=== PATIENT | male | born 1945 | race African-American/Black ===

== ENCOUNTER 2019-06-28 00:15 | Emergency (ER) | payer MEDICARE, OTHER ==
[2019-06-28 01:20] LABS: Basophils # (auto) 0 uL; Basophils % (auto) 0.4 % (0.0-2.0); Eosinophils # (auto) 0.2 uL; Hematocrit 39.3 % (41.0-53.0); Hemoglobin 13.2 g/dL (13.5-17.5); Lymphocytes # (auto) 0.7 uL; Lymphocytes % (auto) 14.5 % (10.0-50.0); Mean Corpuscular Hemoglobin 29.2 pg (28.0-32.0); Mean Corpuscular Hgb Conc. 33.6 g/dL (32.0-36.0); Mean Corpuscular Volume 86.9 fL (80.0-100.0); Monocytes # (auto) 0.4 uL; Neutrophils # (auto) 3.4 uL; Neutrophils % (auto) 72.1 % (37.0-80.0); Nucleated Red Blood Cells % 0.1 %; Platelet Count (auto) 276 10^3/uL (140-450); Red Blood Cells 4.52 10^6/uL (4.5-5.90); Red Cell Distribution Width 14.8 % (11.8-14.3); White Blood Cell 4.7 10^3/uL (4.4-10.8)
[2019-06-28 01:39] LABS: Albumin 3.1 g/dL (3.4-5.0); BUN/Creatinine Ratio 17.6; Calcium 9.9 mg/dL (8.5-10.1); Potassium 3.1 mmol/L (3.5-5.1)
[2019-06-28 01:40] LABS: Bilirubin, Total 0.5 mg/dL (0.2-1.0); Total Protein 7.1 g/dL (6.4-8.2)
[2019-06-28 07:07] LABS: Urine Bacteria MOD /hpf (None Seen); Urine Blood 1+ /uL (Negative); Urine Specific Gravity 1.011 (1.001-1.035); Urine WBC 179 /hpf (0 - 3); Urine WBC Clumps PRESENT /hpf (None Seen)
[2019-06-28 09:00] VITALS: BP 103/75
== END 2019-06-28 10:21 | disposition home or self-care (01) ==
LOC: ER 00:18
DX: N39.0 Urinary tract infection, site not specified (principal); R33.9 Retention of urine, unspecified
CPT/HCPCS: 36415; 51702; 80053; 81001; 85025; 87086; 87088; 87186

== ENCOUNTER 2021-02-24 21:18 | Inpatient (IN) | payer OTHER ==
[~2021-02-24] VITALS: Ht 124.5 cm; Wt 75.8 kg
[2021-02-25 01:44] LABS: Hematocrit 40.3 % (41.0-53.0); Hemoglobin 13.2 g/dL (13.5-17.5); Mean Corpuscular Hemoglobin 28.9 pg (28.0-32.0); Mean Corpuscular Hgb Conc. 32.7 g/dL (32.0-36.0); Mean Corpuscular Volume 88.3 fL (80.0-100.0); Red Blood Cells 4.56 10^6/uL (4.5-5.90); Red Cell Distribution Width 15.3 % (11.8-14.3); White Blood Cell 5.1 10^3/uL (4.4-10.8)
[2021-02-25 01:49] LABS: Basophils % (manual) 0 (0.0-2.0); Blast Cells 0; Eosinophils % (manual) 0 (0-7); Lactic Acid w/Reflex 7.1 mmol/L (0.4-2.0); Metamyelocytes % 0; Monocytes % (manual) 0 (0-12); Promyelocytes % 0; Reactive Lymphocytes 0
[2021-02-25 02:17] LABS: Band Neutrophils % (manual) 40; Lymphocytes % (manual) 4 (10.0-50.0); Myelocytes % 2
[2021-02-25] MEDS ORDERED: SODIUM CHLORIDE 0.9% 1,000 ML IV ONE (03:00)
[2021-02-25] MEDS: cefTRIAXone 1GM/50ML D5W 50 ML IV SCH ×2 (03:30→08:36)
[2021-02-25] MEDS ORDERED: SODIUM CHLORIDE 0.9% 1,000 ML IV SCH (03:30)
[2021-02-25] MEDS ORDERED: ONDANSETRON HCL 4 MG/2 ML VIAL IV PRN (03:30)
[2021-02-25] MEDS ORDERED: ALBUMIN 5% 250 ML IV ONE (03:30)
[2021-02-25 03:34] LABS: Urine Amorphous Crystal FEW /hpf (None Seen); Urine Bacteria FEW /hpf (None Seen); Urine Blood TRACE /uL (Negative); Urine Mucus FEW (None Seen); Urine Specific Gravity 1.013 (1.001-1.035); Urine WBC 2 /hpf (0 - 3)
[2021-02-25 03:55] LABS: Potassium 4.6 mmol/L (3.5-5.1)
[2021-02-25 03:58] LABS: BUN/Creatinine Ratio 15.7; Bilirubin, Total 0.9 mg/dL (0.2-1.0); Total Protein 7.6 g/dL (6.4-8.2)
[2021-02-25] MEDS ORDERED: NOREPINEPHRINE 8 MG/250ML KIT 250 ML IV ONE (07:14)
[2021-02-25] MEDS: NOREPINEPHRINE 8 MG/250ML KIT 250 ML IV SCH ×2 (07:15→21:03)
[2021-02-25] MEDS ORDERED: ENOXAPARIN SOD 30 MG/0.3 ML SYRINGE SC SCH (10:00)
[2021-02-25] MEDS ORDERED: PANTOPRAZOLE 40 MG TAB PO SCH (10:00)
[2021-02-25] MEDS: ACETAMINOPHEN 325 MG TAB PO PRN (10:13)
[2021-02-25] MEDS ORDERED: VANCOMYCIN PER PHARMACY 0 MG IV SCH (10:30)
[2021-02-25] MEDS ORDERED: SODIUM CHLORIDE 0.9% 500 ML IV ONE (10:30)
[2021-02-25] MEDS: SODIUM CHLORIDE 0.9% 1,000 ML IV SCH ×2 (10:30→11:31)
[2021-02-25] MEDS ORDERED: VANCOMYCIN 1GM/250ML 250 ML IV ONE (11:00)
[2021-02-25] MEDS ORDERED: LORazepam 2MG/ML-1ML VIAL IV ONE (11:30)
[2021-02-25] MEDS ORDERED: HALOPERIDOL LACTATE 5 MG/ML INJ VIAL IM PRN (11:45)
[2021-02-25] MEDS ORDERED: ACYCLOVIR 10MG/KG Q8HR PER RX 0 ML IV SCH (13:15)
[2021-02-25] MEDS ORDERED: LORazepam 2MG/ML-1ML VIAL IM ONE (15:00)
[2021-02-25] MEDS ORDERED: diphenhdrAMINE HCL 50 MG/1 ML VL IM ONE (15:00)
[2021-02-25] MEDS ORDERED: ACYCLOVIR SOD 50MG/ML 500 MG in D5W 5% 100 ML IV SCH (16:00)
[2021-02-25] MEDS ORDERED: ETOMIDATE (2MG/ML) 20ML VIAL IV ONE ×2 (16:41→17:15)
[2021-02-25] MEDS ORDERED: SUCCINYLCHOLINE CHLORIDE 20 MG/ML 10ML VIAL IV ONE ×2 (16:42→17:15)
[2021-02-25] MEDS ORDERED: MIDAZOLAM DRIP 50 mg/50mL 50 ML IV ONE (16:45)
[2021-02-25 16:58] VITALS: BP 68/37
[2021-02-25] MEDS ORDERED: fentaNYL Drip 2500mCg/250mlNS 250 ML IV ONE (17:02)
[2021-02-25] MEDS: MIDAZOLAM DRIP 50 mg/50mL 50 ML IV SCH ×3 (17:23→19:58)
[2021-02-25] MEDS: fentaNYL Drip 2500mCg/250mlNS 250 ML IV SCH ×2 (17:25→18:52)
[2021-02-25 18:30] VITALS: BP 75/46
[2021-02-25] MEDS ORDERED: SODIUM CHLORIDE 0.9% 2,000 ML IV ONE (19:15)
[2021-02-25] MEDS ORDERED: DEXTROSE (50%) 50ML SYRG IV PRN (19:15)
[2021-02-25 20:28] LABS: Protein, CSF 48.5 mg/dL (15-45)
[2021-02-25 20:42] LABS: CSF White Blood Cells 1 CUMM (0-5)
[2021-02-25] MEDS: DOPamine 1600MCG/ML D5W 250 ML IV SCH (21:12)
[2021-02-25] MEDS: D5W/SOD CHLO 0.9% 1,000 ML IV SCH (21:19)
[2021-02-25] MEDS: PHENYLEPHRINE IV 250 ML IV SCH (21:47)
[2021-02-25 22:23] VITALS: BP 95/49
[2021-02-25] MEDS: DexAMETHasone INJECTION 10 MG in D5W 5% 50 ML IV SCH (22:25)
[2021-02-25] MEDS: AMPICILLIN SOD 2GM INJ 2 GM in SODIUM CHL 0.9% 100 ML IV SCH (22:27)
[2021-02-25] MEDS: CEFTRIAXONE SODIUM 2 GM in D5W 5% 50 ML IV SCH (22:37)
[2021-02-26] VITALS (8 sets, daily range): BP systolic 101–123; BP diastolic 60–70
[2021-02-26] MEDS: AMPICILLIN SOD 2GM INJ 2 GM in SODIUM CHL 0.9% 100 ML IV SCH ×3 (00:26→12:49)
[2021-02-26] MEDS: DexAMETHasone INJECTION 10 MG in D5W 5% 50 ML IV SCH ×3 (00:26→12:42)
[2021-02-26] MEDS: MIDAZOLAM DRIP 50 mg/50mL 50 ML IV SCH ×2 (00:34→04:19)
[2021-02-26] MEDS: PHENYLEPHRINE IV 250 ML IV SCH ×6 (01:05→21:46)
[2021-02-26] MEDS: NOREPINEPHRINE 8 MG/250ML KIT 250 ML IV SCH ×3 (01:51→20:36)
[2021-02-26] MEDS: D5W/SOD CHLO 0.9% 1,000 ML IV SCH ×3 (04:15→20:02)
[2021-02-26 05:51] LABS: Hematocrit 33.2 % (41.0-53.0); Hemoglobin 10.5 g/dL (13.5-17.5); Mean Corpuscular Hemoglobin 28.2 pg (28.0-32.0); Mean Corpuscular Hgb Conc. 31.6 g/dL (32.0-36.0); Mean Corpuscular Volume 89.5 fL (80.0-100.0); Red Blood Cells 3.71 10^6/uL (4.5-5.90); White Blood Cell 19.2 10^3/uL (4.4-10.8)
[2021-02-26] MEDS: InsuLIN REG 1unit/0.01ml Soln (100units/ml) SC SCH ×4 (05:53→18:24)
[2021-02-26] MEDS: ACCU-CHEK COMFORT CURVE STRIP VI SCH ×4 (05:53→18:24)
[2021-02-26 06:23] LABS: Basophils % (manual) 0 (0.0-2.0); Blast Cells 0; Eosinophils % (manual) 0 (0-7); Promyelocytes % 0; Reactive Lymphocytes 0
[2021-02-26 06:30] LABS: Calcium 7.7 mg/dL (8.5-10.1); Potassium 4.6 mmol/L (3.5-5.1)
[2021-02-26 08:28] LABS: Band Neutrophils % (manual) 27; Lymphocytes % (manual) 3 (10.0-50.0); Metamyelocytes % 8; Monocytes % (manual) 6 (0-12); Myelocytes % 3
[2021-02-26] MEDS: CEFTRIAXONE SODIUM 2 GM in D5W 5% 50 ML IV SCH (10:23)
[2021-02-26] MEDS: PANTOPRAZOLE 40 MG/10 ML VIAL INJ IV SCH (11:31)
[2021-02-26] MEDS: VASOPRESSIN 50 UNITS in D5W 5% 247.5 ML IV SCH (13:30)
[2021-02-26] MEDS ORDERED: MEROPENEM 1GM IVPB 100 ML IV ONE ×2 (14:00)
[2021-02-26] MEDS ORDERED: HYDROCORTISONE SOD SUCC 100 MG/2ML INJ VIAL IV SCH (14:00)
[2021-02-26] MEDS ORDERED: MEROPENEM 1GM IVPB 100 ML IV SCH (14:00)
[2021-02-26] MEDS: ACETAMINOPHEN 325 MG TAB PO PRN (15:05)
[2021-02-26] MEDS ORDERED: VANCOMYCIN PER PHARMACY 0 MG IV SCH (15:30)
[2021-02-26] MEDS: DOPamine 1600MCG/ML D5W 250 ML IV SCH (16:20)
[2021-02-26] MEDS ORDERED: VANCOMYCIN 1GM/250ML 250 ML IV ONE (18:00)
[2021-02-26 19:21] LABS: INR 1.57 (0.9-1.15)
[2021-02-26] MEDS: HYDROCORTISONE SOD SUCC 100 MG/2ML INJ VIAL IV SCH (20:02)
[2021-02-26] MEDS: fentaNYL Drip 2500mCg/250mlNS 250 ML IV SCH (21:46)
[2021-02-26] MEDS: MEROPENEM 500MG IVPB 50 ML IV SCH (22:00)
[2021-02-27] VITALS (9 sets, daily range): BP systolic 124–147; BP diastolic 36–78
[2021-02-27] MEDS: InsuLIN REG 1unit/0.01ml Soln (100units/ml) SC SCH ×3 (00:07→12:00)
[2021-02-27] MEDS: ACCU-CHEK COMFORT CURVE STRIP VI SCH ×3 (00:07→12:00)
[2021-02-27] MEDS: HYDROCORTISONE SOD SUCC 100 MG/2ML INJ VIAL IV SCH ×3 (03:55→20:39)
[2021-02-27] MEDS: D5W/SOD CHLO 0.9% 1,000 ML IV SCH ×2 (03:55→08:53)
[2021-02-27 04:56] LABS: Hematocrit 31.1 % (41.0-53.0); Hemoglobin 10.1 g/dL (13.5-17.5); Mean Corpuscular Hemoglobin 28.9 pg (28.0-32.0); Mean Corpuscular Hgb Conc. 32.5 g/dL (32.0-36.0); Mean Corpuscular Volume 88.8 fL (80.0-100.0); Red Blood Cells 3.51 10^6/uL (4.5-5.90); Red Cell Distribution Width 16.4 % (11.8-14.3); White Blood Cell 25.7 10^3/uL (4.4-10.8)
[2021-02-27 05:14] LABS: BUN/Creatinine Ratio 12.3; Potassium 3.5 mmol/L (3.5-5.1)
[2021-02-27 05:49] LABS: Basophils % (manual) 0 (0.0-2.0); Blast Cells 0; Eosinophils % (manual) 0 (0-7); Promyelocytes % 0; Reactive Lymphocytes 0
[2021-02-27 08:29] LABS: Band Neutrophils % (manual) 18; Lymphocytes % (manual) 2 (10.0-50.0); Metamyelocytes % 2; Monocytes % (manual) 8 (0-12); Myelocytes % 1
[2021-02-27] MEDS: NOREPINEPHRINE 8 MG/250ML KIT 250 ML IV SCH ×3 (09:00→23:30)
[2021-02-27] MEDS: MEROPENEM 500MG IVPB 50 ML IV SCH ×2 (10:00→21:37)
[2021-02-27] MEDS: PANTOPRAZOLE 40 MG/10 ML VIAL INJ IV SCH (10:00)
[2021-02-27] MEDS: fentaNYL Drip 2500mCg/250mlNS 250 ML IV SCH ×2 (11:32→23:30)
[2021-02-27] MEDS: DOPamine 1600MCG/ML D5W 250 ML IV SCH (13:25)
[2021-02-27] MEDS: VASOPRESSIN 50 UNITS in D5W 5% 247.5 ML IV SCH (13:30)
[2021-02-27] MEDS: SODIUM BICARBONATE 50ML VIAL 75 ML in SOD CHL 0.45% 1,000 ML IV SCH (17:00)
[2021-02-27] MEDS: MIDAZOLAM DRIP 50 mg/50mL 50 ML IV SCH ×2 (17:15→20:45)
[2021-02-27] MEDS: PHENYLEPHRINE IV 250 ML IV SCH (18:00)
[2021-02-28] VITALS (77 sets, daily range): BP systolic 89–138; BP diastolic 46–96
[2021-02-28 00:06] LABS: Protein, Urine 21.4 mg/dL (0.0-11.9)
[2021-02-28] MEDS: SODIUM BICARBONATE 50ML VIAL 75 ML in SOD CHL 0.45% 1,000 ML IV SCH ×2 (00:13→06:42)
[2021-02-28] MEDS: ACCU-CHEK COMFORT CURVE STRIP VI SCH ×4 (00:14→18:19)
[2021-02-28] MEDS: InsuLIN REG 1unit/0.01ml Soln (100units/ml) SC SCH ×4 (00:29→18:00)
[2021-02-28] MEDS: MIDAZOLAM DRIP 50 mg/50mL 50 ML IV SCH ×3 (01:21→23:40)
[2021-02-28] MEDS: HYDROCORTISONE SOD SUCC 100 MG/2ML INJ VIAL IV SCH ×3 (03:56→20:00)
[2021-02-28 04:44] LABS: Hematocrit 33.6 % (41.0-53.0)
[2021-02-28 04:48] LABS: Hemoglobin 11.2 g/dL (13.5-17.5); Mean Corpuscular Hemoglobin 28.6 pg (28.0-32.0); Mean Corpuscular Hgb Conc. 33.5 g/dL (32.0-36.0); Mean Corpuscular Volume 85.5 fL (80.0-100.0); Red Blood Cells 3.93 10^6/uL (4.5-5.90); Red Cell Distribution Width 15.8 % (11.8-14.3)
[2021-02-28 05:06] LABS: Albumin 1.6 g/dL (3.4-5.0); Calcium 8.8 mg/dL (8.5-10.1)
[2021-02-28 05:08] LABS: BUN/Creatinine Ratio 17.4
[2021-02-28 05:11] LABS: Bilirubin, Total 1.9 mg/dL (0.2-1.0); Total Protein 5.5 g/dL (6.4-8.2)
[2021-02-28 05:12] LABS: Potassium 2.8 mmol/L (3.5-5.1); White Blood Cell 31.1 10^3/uL (4.4-10.8)
[2021-02-28 05:13] LABS: Basophils % (manual) 0 (0.0-2.0); Blast Cells 0; Eosinophils % (manual) 0 (0-7); Metamyelocytes % 0; Myelocytes % 0; Promyelocytes % 0; Reactive Lymphocytes 0
[2021-02-28] MEDS: NOREPINEPHRINE 8 MG/250ML KIT 250 ML IV SCH (05:37)
[2021-02-28] MEDS ORDERED: SODIUM BICARBONATE 8.4 % INJ 50ML VIAL IV ONE (06:19)
[2021-02-28] MEDS: PHENYLEPHRINE IV 250 ML IV SCH ×2 (08:05→16:25)
[2021-02-28] MEDS: PANTOPRAZOLE 40 MG/10 ML VIAL INJ IV SCH (10:27)
[2021-02-28] MEDS: DOPamine 1600MCG/ML D5W 250 ML IV SCH (10:27)
[2021-02-28] MEDS: MEROPENEM 500MG IVPB 50 ML IV SCH ×2 (10:28→21:58)
[2021-02-28] MEDS: POTASSIUM CHL 20MEQ/100ML 100 ML IV SCH ×3 (10:28→14:30)
[2021-02-28 11:06] LABS: Cryptococcus Antigen CSF Negative (Negative)
[2021-02-28] MEDS: SOD CHL 0.45% WITH 20MEQ KCL 1,000 ML IV SCH ×2 (12:25→17:20)
[2021-02-28 12:49] LABS: Band Neutrophils % (manual) 5; Lymphocytes % (manual) 2 (10.0-50.0); Monocytes % (manual) 2 (0-12)
[2021-02-28] MEDS ORDERED: AMLO-489 PO (12:53)
[2021-02-28] MEDS ORDERED: PRAV20TA3 PO (12:53)
[2021-02-28] MEDS ORDERED: BACL10TA PO (12:53)
[2021-02-28] MEDS ORDERED: POTA10TA51 PO (12:53)
[2021-02-28] MEDS ORDERED: INDA1.252 PO (12:53)
[2021-02-28] MEDS: VASOPRESSIN 50 UNITS in D5W 5% 247.5 ML IV SCH (13:30)
[2021-02-28] MEDS ORDERED: CLINDAMYCIN 600MG IV 50 ML IV SCH (14:00)
[2021-02-28 15:48] LABS: Urine Bacteria FEW /hpf (None Seen); Urine Blood 3+ /uL (Negative); Urine Specific Gravity 1.009 (1.001-1.035); Urine WBC 25 /hpf (0 - 3)
[2021-02-28] MEDS ORDERED: VANCOMYCIN 500 MG in D5W 5% 100 ML IV ONE (18:00)
[2021-02-28] MEDS: FREE WATER GT SCH (18:30)
[2021-02-28] MEDS ORDERED: HEPARIN SODIUM (PORCINE) 5000 UNITS/ML 1ML VIAL SC SCH (22:00)
[2021-03-01] VITALS (100 sets, daily range): BP systolic 65–169; BP diastolic 41–131
[2021-03-01] MEDS: ACCU-CHEK COMFORT CURVE STRIP VI SCH ×5 (00:20→17:51)
[2021-03-01] MEDS: PHENYLEPHRINE IV 250 ML IV SCH ×3 (00:45→17:25)
[2021-03-01] MEDS: MIDAZOLAM DRIP 50 mg/50mL 50 ML IV SCH ×3 (00:54→12:19)
[2021-03-01] MEDS: SOD CHL 0.45% WITH 20MEQ KCL 1,000 ML IV SCH ×3 (01:40→23:19)
[2021-03-01] MEDS: fentaNYL Drip 2500mCg/250mlNS 250 ML IV SCH (03:01)
[2021-03-01 05:13] LABS: Eosinophils # (auto) 0 10 ^3/uL (0-0.8); Hemoglobin 11.2 g/dL (13.5-17.5); Lymphocytes # (auto) 0.4 10 ^3/uL (0.4-5.4); Lymphocytes % (auto) 1.7 % (10.0-50.0); Mean Corpuscular Volume 84.4 fL (80.0-100.0); Neutrophils % (auto) 94.5 % (37.0-80.0)
[2021-03-01 05:21] LABS: Basophils # (auto) 0 10 ^3/uL (0-0.2); Basophils % (auto) 0.2 % (0.0-2.0); Hematocrit 33.4 % (41.0-53.0); Mean Corpuscular Hemoglobin 28.3 pg (28.0-32.0); Mean Corpuscular Hgb Conc. 33.5 g/dL (32.0-36.0); Monocytes # (auto) 0.8 10 ^3/uL (0-1.3); Monocytes % (auto) 3.6 % (0.0-12.0); Neutrophils # (auto) 20.4 10 ^3/uL (1.6-8.6); Nucleated Red Blood Cells % 0.2 %; Red Blood Cells 3.96 10^6/uL (4.5-5.90); Red Cell Distribution Width 15.7 % (11.8-14.3); White Blood Cell 21.6 10^3/uL (4.4-10.8)
[2021-03-01 05:22] LABS: Albumin 1.4 g/dL (3.4-5.0); BUN/Creatinine Ratio 28.8; Calcium 8.5 mg/dL (8.5-10.1)
[2021-03-01 05:25] LABS: Total Protein 5.2 g/dL (6.4-8.2)
[2021-03-01 05:39] LABS: Potassium 2.9 mmol/L (3.5-5.1)
[2021-03-01] MEDS: InsuLIN REG 1unit/0.01ml Soln (100units/ml) SC SCH ×4 (06:00→17:51)
[2021-03-01] MEDS: FREE WATER GT SCH ×5 (06:42→23:17)
[2021-03-01] MEDS: HYDROCORTISONE SOD SUCC 100 MG/2ML INJ VIAL IV SCH ×3 (06:42→20:51)
[2021-03-01] MEDS: DOPamine 1600MCG/ML D5W 250 ML IV SCH (07:35)
[2021-03-01] MEDS ORDERED: POTASSIUM EFFERVESENT TAB 25 MEQ GT ONE (09:15)
[2021-03-01] MEDS: PANTOPRAZOLE 40 MG/10 ML VIAL INJ IV SCH (10:05)
[2021-03-01] MEDS: MEROPENEM 500MG IVPB 50 ML IV SCH ×2 (10:05→23:17)
[2021-03-01] MEDS: POTASSIUM CHL 20MEQ/100ML 100 ML IV SCH ×2 (10:20→12:17)
[2021-03-01] MEDS: MAGNESIUM SULFATE 1GM/100ML 100 ML IV SCH ×2 (10:21→11:31)
[2021-03-01] MEDS: NOREPINEPHRINE 8 MG/250ML KIT 250 ML IV SCH (11:31)
[2021-03-01] MEDS: VANCOMYCIN 1GM/250ML 250 ML IV SCH (12:16)
[2021-03-01] MEDS: VASOPRESSIN 50 UNITS in D5W 5% 247.5 ML IV SCH (13:30)
[2021-03-01 15:47] LABS: BUN/Creatinine Ratio 29.2; Calcium 8.5 mg/dL (8.5-10.1); Potassium 4.4 mmol/L (3.5-5.1)
[2021-03-02] VITALS (92 sets, daily range): BP systolic 97–175; BP diastolic 58–101
[2021-03-02] MEDS: HYDROCORTISONE SOD SUCC 100 MG/2ML INJ VIAL IV SCH ×3 (04:00→19:29)
[2021-03-02] MEDS: InsuLIN REG 1unit/0.01ml Soln (100units/ml) SC SCH ×4 (05:57→18:00)
[2021-03-02] MEDS: ACCU-CHEK COMFORT CURVE STRIP VI SCH ×4 (05:57→18:11)
[2021-03-02] MEDS: FREE WATER GT SCH ×2 (05:58→12:37)
[2021-03-02 06:17] LABS: Hematocrit 30.9 % (41.0-53.0)
[2021-03-02 06:22] LABS: Hemoglobin 10.4 g/dL (13.5-17.5); Mean Corpuscular Hemoglobin 28.9 pg (28.0-32.0); Mean Corpuscular Hgb Conc. 33.5 g/dL (32.0-36.0); Mean Corpuscular Volume 86.2 fL (80.0-100.0); Red Blood Cells 3.58 10^6/uL (4.5-5.90); Red Cell Distribution Width 15.7 % (11.8-14.3); White Blood Cell 17.3 10^3/uL (4.4-10.8)
[2021-03-02 06:37] LABS: Basophils % (manual) 0 (0.0-2.0); Blast Cells 0; Eosinophils % (manual) 0 (0-7); Metamyelocytes % 0; Monocytes % (manual) 0 (0-12); Myelocytes % 0; Promyelocytes % 0; Reactive Lymphocytes 0
[2021-03-02 06:47] LABS: Potassium 3.4 mmol/L (3.5-5.1)
[2021-03-02 06:57] LABS: Albumin 1.5 g/dL (3.4-5.0); Bilirubin, Total 1.3 mg/dL (0.2-1.0); Calcium 8.4 mg/dL (8.5-10.1); Total Protein 4.9 g/dL (6.4-8.2)
[2021-03-02] MEDS: PHENYLEPHRINE IV 250 ML IV SCH ×2 (08:18→11:27)
[2021-03-02] MEDS: DOPamine 1600MCG/ML D5W 250 ML IV SCH (08:18)
[2021-03-02] MEDS: NOREPINEPHRINE 8 MG/250ML KIT 250 ML IV SCH (08:22)
[2021-03-02] MEDS: SOD CHL 0.45% WITH 20MEQ KCL 1,000 ML IV SCH ×3 (08:22→20:00)
[2021-03-02 08:41] LABS: Band Neutrophils % (manual) 2; Lymphocytes % (manual) 18 (10.0-50.0)
[2021-03-02] MEDS: VANCOMYCIN 1GM/250ML 250 ML IV SCH (09:36)
[2021-03-02] MEDS: PANTOPRAZOLE 40 MG/10 ML VIAL INJ IV SCH (11:34)
[2021-03-02] MEDS ORDERED: MEROPENEM 500MG IVPB 50 ML IV ONE (12:00)
[2021-03-02] MEDS: VASOPRESSIN 50 UNITS in D5W 5% 247.5 ML IV SCH (12:57)
[2021-03-02] MEDS ORDERED: POTASSIUM CHL 20MEQ/100ML 100 ML IV ONE (14:45)
[2021-03-02] MEDS: MORPHINE SULFATE INJECTION 2 MG/ML SYRG IV PRN (20:37)
[2021-03-02] MEDS: MEROPENEM 1GM IVPB 100 ML IV SCH (21:48)
[2021-03-02] MEDS: HEPARIN SODIUM (PORCINE) 5000 UNITS/ML 1ML VIAL SC SCH (21:48)
[2021-03-03] VITALS (91 sets, daily range): BP systolic 71–205; BP diastolic 33–110
[2021-03-03] MEDS: ACCU-CHEK COMFORT CURVE STRIP VI SCH ×5 (00:14→23:21)
[2021-03-03] MEDS: HYDROCORTISONE SOD SUCC 100 MG/2ML INJ VIAL IV SCH ×2 (04:00→16:30)
[2021-03-03 06:30] LABS: Hematocrit 28.8 % (41.0-53.0); Hemoglobin 9.7 g/dL (13.5-17.5); Mean Corpuscular Hemoglobin 28.9 pg (28.0-32.0); Mean Corpuscular Hgb Conc. 33.6 g/dL (32.0-36.0); Red Blood Cells 3.35 10^6/uL (4.5-5.90); Red Cell Distribution Width 15.2 % (11.8-14.3); White Blood Cell 14.3 10^3/uL (4.4-10.8)
[2021-03-03] MEDS: InsuLIN REG 1unit/0.01ml Soln (100units/ml) SC SCH ×5 (06:30→23:40)
[2021-03-03 06:36] LABS: Albumin 1.4 g/dL (3.4-5.0); BUN/Creatinine Ratio 44.6; Calcium 8.3 mg/dL (8.5-10.1); Potassium 3.1 mmol/L (3.5-5.1)
[2021-03-03 06:39] LABS: Total Protein 4.6 g/dL (6.4-8.2)
[2021-03-03 06:44] LABS: Basophils % (manual) 0 (0.0-2.0); Blast Cells 0; Eosinophils % (manual) 0 (0-7); Promyelocytes % 0; Reactive Lymphocytes 0
[2021-03-03] MEDS: NOREPINEPHRINE 8 MG/250ML KIT 250 ML IV SCH ×2 (07:15→16:45)
[2021-03-03] MEDS: DOPamine 1600MCG/ML D5W 250 ML IV SCH (07:38)
[2021-03-03] MEDS: SOD CHL 0.45% WITH 20MEQ KCL 1,000 ML IV SCH ×2 (08:00→13:08)
[2021-03-03 08:30] LABS: Band Neutrophils % (manual) 8; Lymphocytes % (manual) 11 (10.0-50.0); Metamyelocytes % 2; Monocytes % (manual) 2 (0-12); Myelocytes % 1
[2021-03-03] MEDS: HEPARIN SODIUM (PORCINE) 5000 UNITS/ML 1ML VIAL SC SCH ×2 (11:07→22:00)
[2021-03-03] MEDS: MEROPENEM 1GM IVPB 100 ML IV SCH ×2 (11:30→21:38)
[2021-03-03] MEDS: POTASSIUM CHL 20MEQ/100ML 100 ML IV SCH ×2 (11:30→13:08)
[2021-03-03] MEDS: MAGNESIUM SULFATE 1GM/100ML 100 ML IV SCH ×2 (11:30→13:17)
[2021-03-03] MEDS: PANTOPRAZOLE 40 MG/10 ML VIAL INJ IV SCH (11:31)
[2021-03-04] VITALS (45 sets, daily range): BP systolic 90–216; BP diastolic 37–107
[2021-03-04] MEDS: HYDROCORTISONE SOD SUCC 100 MG/2ML INJ VIAL IV SCH ×2 (04:00→16:00)
[2021-03-04 05:21] LABS: Hematocrit 32.6 % (41.0-53.0); Hemoglobin 10.8 g/dL (13.5-17.5); Mean Corpuscular Hemoglobin 28.5 pg (28.0-32.0); Mean Corpuscular Hgb Conc. 33.1 g/dL (32.0-36.0); Red Blood Cells 3.79 10^6/uL (4.5-5.90); Red Cell Distribution Width 15.5 % (11.8-14.3); White Blood Cell 18.1 10^3/uL (4.4-10.8)
[2021-03-04 05:36] LABS: Basophils % (manual) 0 (0.0-2.0); Blast Cells 0; Eosinophils % (manual) 0 (0-7); Promyelocytes % 0; Reactive Lymphocytes 0
[2021-03-04 05:40] LABS: Calcium 8.9 mg/dL (8.5-10.1); Potassium 3.7 mmol/L (3.5-5.1)
[2021-03-04 05:46] LABS: BUN/Creatinine Ratio 40.5
[2021-03-04] MEDS: InsuLIN REG 1unit/0.01ml Soln (100units/ml) SC SCH ×4 (06:00→23:49)
[2021-03-04] MEDS: ACCU-CHEK COMFORT CURVE STRIP VI SCH ×4 (06:00→23:49)
[2021-03-04] MEDS: NOREPINEPHRINE 8 MG/250ML KIT 250 ML IV SCH (07:15)
[2021-03-04 07:35] LABS: Band Neutrophils % (manual) 6; Lymphocytes % (manual) 8 (10.0-50.0); Metamyelocytes % 1; Monocytes % (manual) 3 (0-12); Myelocytes % 2
[2021-03-04] MEDS: PANTOPRAZOLE 40 MG/10 ML VIAL INJ IV SCH (11:40)
[2021-03-04] MEDS: SOD CHL 0.45% WITH 20MEQ KCL 1,000 ML IV SCH ×2 (11:40→19:59)
[2021-03-04] MEDS: MEROPENEM 1GM IVPB 100 ML IV SCH ×2 (11:42→21:41)
[2021-03-04] MEDS: HEPARIN SODIUM (PORCINE) 5000 UNITS/ML 1ML VIAL SC SCH ×2 (11:42→21:42)
[2021-03-05] VITALS (11 sets, daily range): BP systolic 93–226; BP diastolic 65–122
[2021-03-05] MEDS: HYDROCORTISONE SOD SUCC 100 MG/2ML INJ VIAL IV SCH ×2 (04:01→13:24)
[2021-03-05] MEDS: MORPHINE SULFATE INJECTION 2 MG/ML SYRG IV PRN (04:37)
[2021-03-05 04:41] LABS: Hematocrit 28.9 % (41.0-53.0); Hemoglobin 9.5 g/dL (13.5-17.5); Mean Corpuscular Hemoglobin 27.7 pg (28.0-32.0); Mean Corpuscular Hgb Conc. 32.7 g/dL (32.0-36.0); Mean Corpuscular Volume 84.8 fL (80.0-100.0); Red Blood Cells 3.41 10^6/uL (4.5-5.90); Red Cell Distribution Width 15.5 % (11.8-14.3); White Blood Cell 13.7 10^3/uL (4.4-10.8)
[2021-03-05 05:05] LABS: Basophils % (manual) 0 (0.0-2.0); Blast Cells 0; Eosinophils % (manual) 0 (0-7); Promyelocytes % 0; Reactive Lymphocytes 0
[2021-03-05 05:10] LABS: Potassium 3.1 mmol/L (3.5-5.1)
[2021-03-05 05:14] LABS: BUN/Creatinine Ratio 33.3; Calcium 8.5 mg/dL (8.5-10.1)
[2021-03-05] MEDS: SOD CHL 0.45% WITH 20MEQ KCL 1,000 ML IV SCH ×4 (05:40→23:30)
[2021-03-05] MEDS: ACCU-CHEK COMFORT CURVE STRIP VI SCH ×2 (06:00→12:00)
[2021-03-05] MEDS: InsuLIN REG 1unit/0.01ml Soln (100units/ml) SC SCH ×3 (06:00→23:30)
[2021-03-05] MEDS: NOREPINEPHRINE 8 MG/250ML KIT 250 ML IV SCH (07:15)
[2021-03-05] MEDS ORDERED: hydrALAZINE HCL 20 MG/ML VL IV PRN (07:45)
[2021-03-05 07:46] LABS: Band Neutrophils % (manual) 3; Lymphocytes % (manual) 2 (10.0-50.0); Metamyelocytes % 2; Monocytes % (manual) 4 (0-12); Myelocytes % 2
[2021-03-05] MEDS ORDERED: IOHEXOL 300 MG/ML 100ML BOTTLE IJ ONE (09:49)
[2021-03-05] MEDS: FREE WATER PO SCH ×4 (10:00→22:32)
[2021-03-05] MEDS: POTASSIUM CHL 20MEQ/100ML 100 ML IV SCH ×2 (10:00→12:00)
[2021-03-05] MEDS: PANTOPRAZOLE 40 MG/10 ML VIAL INJ IV SCH (10:00)
[2021-03-05] MEDS: HEPARIN SODIUM (PORCINE) 5000 UNITS/ML 1ML VIAL SC SCH ×2 (13:20→22:38)
[2021-03-05] MEDS ORDERED: HYDROCORTISONE 10 MG TAB PO ONE (18:00)
[2021-03-05] MEDS: MEROPENEM 1GM IVPB 100 ML IV SCH (22:31)
[2021-03-06] MEDS: FREE WATER PO SCH ×6 (02:00→22:00)
[2021-03-06] MEDS: InsuLIN REG 1unit/0.01ml Soln (100units/ml) SC SCH ×4 (06:00→23:36)
[2021-03-06] MEDS: ACCU-CHEK COMFORT CURVE STRIP VI SCH ×5 (06:00→23:36)
[2021-03-06] MEDS ORDERED: HYDROCORTISONE 10 MG TAB PO ONE (09:30)
[2021-03-06 10:16] LABS: Hematocrit 27.3 % (41.0-53.0); Hemoglobin 8.8 g/dL (13.5-17.5); Mean Corpuscular Hemoglobin 28.1 pg (28.0-32.0); Mean Corpuscular Hgb Conc. 32.2 g/dL (32.0-36.0); Mean Corpuscular Volume 87.3 fL (80.0-100.0); Red Blood Cells 3.13 10^6/uL (4.5-5.90); Red Cell Distribution Width 16.1 % (11.8-14.3); White Blood Cell 11.5 10^3/uL (4.4-10.8)
[2021-03-06 10:20] LABS: Basophils % (manual) 0 (0.0-2.0); Blast Cells 0; Eosinophils % (manual) 0 (0-7); Myelocytes % 0; Promyelocytes % 0; Reactive Lymphocytes 0
[2021-03-06 10:38] LABS: Calcium 9.1 mg/dL (8.5-10.1)
[2021-03-06] MEDS: PANTOPRAZOLE 40 MG/10 ML VIAL INJ IV SCH (10:38)
[2021-03-06] MEDS: MEROPENEM 1GM IVPB 100 ML IV SCH (10:38)
[2021-03-06] MEDS: HYDROCORTISONE SOD SUCC 100 MG/2ML INJ VIAL IV SCH (10:39)
[2021-03-06 10:41] LABS: Band Neutrophils % (manual) 5; Lymphocytes % (manual) 4 (10.0-50.0); Metamyelocytes % 1; Monocytes % (manual) 6 (0-12)
[2021-03-06] MEDS: SOD CHL 0.45% WITH 20MEQ KCL 1,000 ML IV SCH (10:56)
[2021-03-06] MEDS: HEPARIN SODIUM (PORCINE) 5000 UNITS/ML 1ML VIAL SC SCH ×2 (10:58→23:37)
[2021-03-06] MEDS: ERTAPENEM SOD INJ 1 GM in SODIUM CHL 0.9% 50 ML IV SCH ×2 (11:30→14:33)
[2021-03-06] MEDS ORDERED: D5W 5% 1,000 ML IV SCH (11:30)
[2021-03-06] MEDS ORDERED: PRED20TA2 PO (11:32)
[2021-03-06] MEDS ORDERED: AMLO-489 PO (11:32)
[2021-03-06 12:16] LABS: Potassium 2.8 mmol/L (3.5-5.1)
[2021-03-06] MEDS: POTASSIUM CHL 20MEQ/100ML 100 ML IV SCH ×3 (14:35→17:34)
[2021-03-06] MEDS: POTASSIUM CHLORIDE 20 MEQ in D5W 5% 1,000 ML IV SCH (18:09)
[2021-03-06 21:49] VITALS: BP 104/68
[2021-03-06 22:33] VITALS: BP 104/68
[2021-03-06 23:02] LABS: BUN/Creatinine Ratio 28.6; Calcium 8.7 mg/dL (8.5-10.1); Potassium 3.1 mmol/L (3.5-5.1)
[2021-03-06] MEDS ORDERED: POTASSIUM CHL 20 Meq TABLET PO ONE (23:30)
[2021-03-07] MEDS: POTASSIUM CHL 20MEQ/100ML 100 ML IV SCH ×2 (01:19→03:03)
[2021-03-07] MEDS: FREE WATER PO SCH ×5 (03:04→15:39)
[2021-03-07] MEDS: POTASSIUM CHLORIDE 20 MEQ in D5W 5% 1,000 ML IV SCH ×2 (03:41→09:12)
[2021-03-07] MEDS: InsuLIN REG 1unit/0.01ml Soln (100units/ml) SC SCH ×2 (05:47→11:54)
[2021-03-07] MEDS: ACCU-CHEK COMFORT CURVE STRIP VI SCH ×2 (05:47→11:54)
[2021-03-07 05:58] VITALS: BP 110/61
[2021-03-07] MEDS: HEPARIN SODIUM (PORCINE) 5000 UNITS/ML 1ML VIAL SC SCH (10:00)
[2021-03-07] MEDS: PANTOPRAZOLE 40 MG/10 ML VIAL INJ IV SCH (10:00)
[2021-03-07 10:24] LABS: Hematocrit 28.4 % (41.0-53.0); Hemoglobin 9.3 g/dL (13.5-17.5); Mean Corpuscular Hemoglobin 28.1 pg (28.0-32.0); Mean Corpuscular Hgb Conc. 32.7 g/dL (32.0-36.0); Mean Corpuscular Volume 86.1 fL (80.0-100.0); Red Cell Distribution Width 16.3 % (11.8-14.3); White Blood Cell 12.4 10^3/uL (4.4-10.8)
[2021-03-07 10:32] LABS: Basophils % (manual) 0 (0.0-2.0); Blast Cells 0; Metamyelocytes % 0; Myelocytes % 0; Promyelocytes % 0; Reactive Lymphocytes 0
[2021-03-07 11:58] LABS: Band Neutrophils % (manual) 1; Eosinophils % (manual) 1 (0-7); Lymphocytes % (manual) 18 (10.0-50.0); Monocytes % (manual) 5 (0-12)
[2021-03-07 12:00] LABS: Potassium 3.3 mmol/L (3.5-5.1)
[2021-03-07 12:08] LABS: BUN/Creatinine Ratio 24.6; Calcium 9.3 mg/dL (8.5-10.1)
[2021-03-07 12:54] VITALS: BP 116/66
[2021-03-07] MEDS ORDERED: POTASSIUM CHL 20 Meq TABLET PO ONE (13:30)
[2021-03-07] MEDS ORDERED: POTASSIUM CHL 20MEQ/100ML 100 ML IV ONE (13:30)
[2021-03-07] MEDS: ACETAMINOPHEN 325 MG TAB PO PRN (13:38)
[2021-03-07 17:00] VITALS: BP 121/68
== END 2021-03-07 17:40 | disposition home health service (06) | DRG 870 ==
LOC: ER 21:18 → OVERFLOW 02-25 03:29 → DOU IN ICU 02-28 06:07 → WEST WING 03-05 10:54 → TELE-WESTW 03-06 05:55
PROVIDERS: ADMIT Nurse Practitioner; ATTEND Hospitalist
PROC: 5A1955Z Respiratory Ventilation, Greater than 96 Consecutive Hours (ICD-10-PCS; principal; 2021-02-25)
PROC: 05H933Z Insertion of Infusion Device into Right Brachial Vein, Percutaneous Approach (ICD-10-PCS; 2021-02-25)
PROC: 009U3ZX Drainage of Spinal Canal, Percutaneous Approach, Diagnostic (ICD-10-PCS; 2021-02-25)
PROC: B54MZZA Ultrasonography of Right Upper Extremity Veins, Guidance (ICD-10-PCS; 2021-02-25)
PROC: 02HV33Z Insertion of Infusion Device into Superior Vena Cava, Percutaneous Approach (ICD-10-PCS; 2021-02-25)
PROC: B548ZZA Ultrasonography of Superior Vena Cava, Guidance (ICD-10-PCS; 2021-02-25)
PROC: 0BH17EZ Insertion of Endotracheal Airway into Trachea, Via Natural or Artificial Opening (ICD-10-PCS; 2021-02-25)
PROC: 0J993ZZ Drainage of Buttock Subcutaneous Tissue and Fascia, Percutaneous Approach (ICD-10-PCS; 2021-02-28)
DX: A41.9 Sepsis, unspecified organism (principal); R65.21 Severe sepsis with septic shock; J96.01 Acute respiratory failure with hypoxia; I46.9 Cardiac arrest, cause unspecified; N17.0 Acute kidney failure with tubular necrosis; G93.41 Metabolic encephalopathy; J18.9 Pneumonia, unspecified organism; E44.0 Moderate protein-calorie malnutrition; G82.20 Paraplegia, unspecified; L02.31 Cutaneous abscess of buttock; E87.2 Acidosis; E87.0 Hyperosmolality and hypernatremia; G93.1 Anoxic brain damage, not elsewhere classified; Z68.42 Body mass index [BMI] 45.0-49.9, adult; N13.6 Pyonephrosis; E66.01 Morbid (severe) obesity due to excess calories; N18.9 Chronic kidney disease, unspecified; G31.84 Mild cognitive impairment of uncertain or unknown etiology; I12.9 Hypertensive chronic kidney disease with stage 1 through stage 4 chronic kidney disease, or unspecified chronic kidney disease; E11.22 Type 2 diabetes mellitus with diabetic chronic kidney disease; E87.6 Hypokalemia; B96.1 Klebsiella pneumoniae [K. pneumoniae] as the cause of diseases classified elsewhere; E11.65 Type 2 diabetes mellitus with hyperglycemia; Z90.49 Acquired absence of other specified parts of digestive tract; Z74.01 Bed confinement status; Z91.19 Patient's noncompliance with other medical treatment and regimen; Z89.612 Acquired absence of left leg above knee; Z89.611 Acquired absence of right leg above knee
CPT/HCPCS: 36415; 36600; 70450; 71045; 74176; 74177; 76775; 80048; 80053; 80202; 81001; 82533; 82570; 82805; 82945; 82962; 83036; 83605; 83735; 84156; 84157; 84300; 85007; 85025; 85027; 85610; 85652; 86141; 86850; 86900; 86901; 87040; 87070; 87075; 87077; 87081; 87086; 87088; 87186; 87205; 87426; 87529; 87899; 89051; 92610; 93306; 94003; 96361; 96365; 97110; 97163; 97530; C9113; G0378; J0330; J0696; J1100; J1335; J1815; J2185; J2250; J3480; J7042; J7060

== ENCOUNTER → 2021-08-18 | Outpatient (CLI) | payer OTHER ==
[~2021-08-18] VITALS: Ht 121.9 cm; Wt 63.5 kg
[~2021-08-18] MED LIST: ADENOSINE 53 MG in GIVE UN-DILUTED 0 ML IV STA; AMLO-489 PO; NITROGLYCERIN 0.4 MG SL TAB SL ONE; PRAV20TA3 PO; PRED20TA2 PO; REGADENOSON 0.4 MG/5 ML SYRG IV ONE
== END | disposition home or self-care (01) ==
LOC: XY 08:12
PROVIDERS: ATTEND Internal Medicine
DX: I46.9 Cardiac arrest, cause unspecified (principal)
CPT/HCPCS: 78452; J0153

== ENCOUNTER → 2021-09-30 | Outpatient (CLI) | payer OTHER ==
[~2021-09-30] VITALS: Ht 30.5 cm; Wt 0.5 kg
[~2021-09-30] MED LIST changes: -ADENOSINE 53 MG in GIVE UN-DILUTED 0 ML IV STA; -NITROGLYCERIN 0.4 MG SL TAB SL ONE
[2021-09-30 09:48] VITALS: BP 114/68
== END | disposition home or self-care (01) ==
LOC: XYW 08:47
PROVIDERS: ATTEND Internal Medicine
DX: E78.00 Pure hypercholesterolemia, unspecified (principal); I95.9 Hypotension, unspecified; Z01.89 Encounter for other specified special examinations
CPT/HCPCS: 93017; J2785; 78452